=== PATIENT | female | born 1995 | race Caucasian/White ===

== ENCOUNTER 2021-10-03 17:34 | Emergency (ER) | payer OTHER ==
[~2021-10-03] VITALS: Ht 162.6 cm; Wt 82.4 kg
[2021-10-03] MEDS ORDERED: ZOLO25TA PO (17:53)
[2021-10-03] MEDS ORDERED: TRAZ-252 PO (17:53)
[2021-10-03] MEDS ORDERED: PRAZ1CAP PO (17:53)
[2021-10-03] MEDS ORDERED: OMEP10CASR PO (17:53)
[2021-10-03] MEDS ORDERED: KETOROLAC 30 MG/ML 1ML VIAL IM ONE (20:05)
[2021-10-03] MEDS ORDERED: ONDANSETRON 4MG ORAL DISINTEGRATING TAB PO ONE (20:05)
[2021-10-03 20:27] LABS: APPEARANCE, URINE CLOUDY (CLEAR); BACTERIA, URINE AUTO NEGATIVE (NEGATIVE); BILIRUBIN, URINE AUTO NEGATIVE (NEGATIVE); BLOOD, URINE BLOOD 3+ (NEGATIVE); COLOR, URINE AMBER (YELLOW); GLUCOSE, URINE (UA) AUTO NEGATIVE (NEGATIVE); KETONE, URINE AUTO TRACE mg/dL (NEGATIVE); LEUKOCYTE ESTERASE, URINE AUTO NEGATIVE (NEGATIVE); MUCUS, URINE LARGE (NEGATIVE); NITRITE, URINE AUTO NEGATIVE (NEGATIVE); PROTEIN, URINE AUTO 1+ mg/dL (NEGATIVE); RBC, URINE AUTO 81 /HPF (0-3); SQUAMOUS EPITHELIAL CELL UR AU 12 /HPF (0-6); UROBILINOGEN, URINE AUTO 0.2 mg/dL (0.0-2.0); WBC, URINE AUTO 1 /HPF (0-3)
[2021-10-03] MEDS ORDERED: ONDA4TAB6 PO (21:07)
[2021-10-03] MEDS ORDERED: ACETAMINOPHEN 500 MG TAB PO ONE (21:10)
[2021-10-03] MEDS ORDERED: MAPA500C PO (21:11)
[2021-10-03 21:20] VITALS: BP 116/59
[2021-10-03 22:14] LABS: GC DNA AMPLIFICATION NEGATIVE (NEGATIVE)
== END 2021-10-03 21:32 | disposition home or self-care (01) ==
LOC: M ED 17:34
DX: N94.6 Dysmenorrhea, unspecified (principal); R80.9 Proteinuria, unspecified
CPT/HCPCS: 81001; 84702; 87661; 87810; 87850; 96372; 99283; J1885